=== PATIENT | male | born 1925 | race Caucasian/White ===

== ENCOUNTER → 2016-04-27 | Outpatient (CLI) | payer OTHER, MEDICARE ==
[2016-04-27 14:14] LABS: COLLECTION SITE R RAD
[2016-04-27 14:15] LABS: ABG PH 7.38 (7.35-7.45)
[2016-04-27 14:16] LABS: ABG BASE EXCESS -3 MMOL/L (-2-2); ABG HCO3 22 (22-26); ABG OXYGEN SATURATION 92 % (90-100); ABG TCO2 24 MMOL/L (23-27); ALLEN TEST Y; FIO2/O2 21
[2016-04-27 14:20] LABS: ABG PH 7.24 (7.35-7.45); COLLECTION SITE L RAD
[2016-04-27 14:21] LABS: ABG BASE EXCESS -11 MMOL/L (-2-2); ABG HCO3 16 (22-26); ABG OXYGEN SATURATION 94 % (90-100); ABG TCO2 17 MMOL/L (23-27); ALLEN TEST Y
[2016-04-27 14:22] LABS: FIO2/O2 21
== END ==
LOC: RT 13:03
PROVIDERS: ATTEND Internal Medicine
DX: Z77.012 Contact with and (suspected) exposure to uranium (principal)
CPT/HCPCS: 36600; 82803

== ENCOUNTER → 2016-07-26 | Outpatient (CLI) | payer OTHER, MEDICARE ==
--- NOTE | 2016-07-26 15:01 | DI ---
RIGHT LONG FINGER, 07/26/2016 2:34 PM: Clinical History: Pain in the right long finger. Previous Exam: None at this facility. 3 views are submitted. There is no acute soft tissue, osseous, or joint abnormality. On all views, th e distal phalanx of the long finger is flexed and injury to the extensor mechanism cannot be excluded . 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 Reading: There is no acute fracture or dislocation. Mild arthritic changes are present in the PIP and DIP join t.
--- NOTE | 2016-07-26 15:02 | DI ---
LEFT LONG FINGER, 07/26/2016 2:34 PM: Clinical History: Pain in the left long finger. Previous Exam: None at this facility. 3 views are submitted. There is no acute soft tissue, osseous, or joint abnormality. Degenerative art hritic changes are present in the PIP and DIP joints. On the PA projection of the hand, arthritic tyra nges are also noted in the triscaphe joint. 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
== END ==
LOC: ORTHO 14:46
PROVIDERS: ATTEND Orthopaedic Surgery
DX: M79.644 Pain in right finger(s) (principal); M79.645 Pain in left finger(s); M19.042 Primary osteoarthritis, left hand; M19.041 Primary osteoarthritis, right hand
CPT/HCPCS: 73140

== ENCOUNTER 2016-07-30 12:53 | Day surgery (SDC) | payer OTHER, MEDICARE ==
[~2016-07-30 12:53] MED LIST: LIDOCAINE W/ SODIUM BICARB 0.5 ML SYR ONE; Lactated Ringers 1,000 ML PRIMARY IV ONE; ceFAZolin Inj 2gm (Premix) 50 ML IV ONE
[2016-07-30 13:30] VITALS: RESP 18
[2016-07-30] MEDS ORDERED: LIDOCAINE 2% 20 MG/ML - 20 ML VIAL ONE (14:17)
[2016-07-30] MEDS ORDERED: MIDAZOLAM 5 MG/1 ML ONE (14:52)
[2016-07-30] MEDS ORDERED: NORMAL SALINE 10 ML SYRINGE FLUSH IVP PRN (15:38)
[2016-07-30] MEDS ORDERED: HYDROcodone-APAP 5 MG -325 MG TABLET PO PRN (15:38)
[2016-07-30] MEDS ORDERED: BISACODYL 10 MG SUPPOSITORY RECTAL PRN (15:38)
[2016-07-30] MEDS ORDERED: MAG HYDROX/AL HYDROX/SIMETH 30 ML SUSP PO PRN (15:38)
[2016-07-30] MEDS ORDERED: IBUPROFEN 400 MG TABLET PO PRN (15:38)
[2016-07-30] MEDS ORDERED: Ondansetron ODT Tab 8 MG TAB PO PRN (15:38)
[2016-07-30] MEDS ORDERED: CALCIUM CARBONATE 500 MG (TUMS) CHEWABLE TABLET PO PRN (15:38)
[2016-07-30] MEDS ORDERED: Prochlorperazine Tab 10 MG TAB PO PRN (15:38)
[2016-07-30] MEDS ORDERED: diphenhydrAMINE 25 MG CAPSULE PO PRN (15:38)
[2016-07-30] MEDS ORDERED: BISACODYL 5 MG TABLET PO PRN (15:38)
[2016-07-30] MEDS ORDERED: ONDANSETRON 4 MG/2 ML VIAL IVP PRN (15:38)
[2016-07-30] MEDS ORDERED: ACETAMINOPHEN 325 MG TABLET PO PRN (15:38)
[2016-07-30] MEDS ORDERED: Lactated Ringers 1,000 ML PRIMARY IV SCH (15:45)
[2016-07-30 16:33] VITALS: TEMP 97.8
== END 2016-07-30 16:40 | disposition home or self-care (01) ==
LOC: SDSC 12:53
PROVIDERS: ATTEND Orthopaedic Surgery
DX: M65.331 Trigger finger, right middle finger (principal); M65.332 Trigger finger, left middle finger
CPT/HCPCS: 26055; J0690; 01810; J2001; J2250; J7120

== ENCOUNTER → 2016-08-06 | Outpatient (CLI) | payer OTHER, MEDICARE | LOC: MMPC 10:00 | PROVIDERS: ATTEND Orthopaedic Surgery | DX: M65.331 Trigger finger, right middle finger (principal); M65.332 Trigger finger, left middle finger ==

== ENCOUNTER → 2016-09-03 | Outpatient (CLI) | payer OTHER, MEDICARE | LOC: MMPC 10:00 | PROVIDERS: ATTEND Orthopaedic Surgery | DX: M65.332 Trigger finger, left middle finger (principal); M65.331 Trigger finger, right middle finger ==

== ENCOUNTER 2016-09-07 09:00 | Day surgery (SDC) | payer OTHER, MEDICARE ==
[2016-09-07] MEDS ORDERED: BUPIVACAINE 0.25% W/ EPI - 10 ML VIAL ONE (09:45)
[2016-09-07] MEDS ORDERED: fentaNYL Inj 250 MCG/5 ML VIAL ONE (10:13)
[2016-09-07] MEDS ORDERED: MIDAZOLAM 5 MG/1 ML ONE (10:13)
[2016-09-07] MEDS ORDERED: LIDOCAINE HCL 1%/EPI 1:100,000 - 20 ML VIAL ONE (11:29)
[2016-09-07] MEDS ORDERED: BUPivacaine Inj 0.25% PF - 10ml vial ONE (11:29)
[2016-09-07] MEDS ORDERED: Lidocaine Inj 1% 20 ML ONE (11:31)
[2016-09-07] MEDS ORDERED: MORPHINE SULFATE 2 MG/1 ML IVP PRN (11:53)
[2016-09-07] MEDS ORDERED: CALCIUM CARBONATE 500 MG (TUMS) CHEWABLE TABLET PO PRN (11:53)
[2016-09-07] MEDS ORDERED: IBUPROFEN 400 MG TABLET PO PRN (11:53)
[2016-09-07] MEDS ORDERED: BISACODYL 5 MG TABLET PO PRN (11:53)
[2016-09-07] MEDS ORDERED: MAG HYDROX/AL HYDROX/SIMETH 30 ML SUSP PO PRN (11:53)
[2016-09-07] MEDS ORDERED: Ondansetron ODT Tab 8 MG TAB PO PRN (11:53)
[2016-09-07] MEDS ORDERED: Prochlorperazine Tab 10 MG TAB PO PRN (11:53)
[2016-09-07] MEDS ORDERED: NORMAL SALINE 10 ML SYRINGE FLUSH IVP PRN (11:53)
[2016-09-07] MEDS ORDERED: HYDROcodone-APAP 5 MG -325 MG TABLET PO PRN (11:53)
[2016-09-07] MEDS ORDERED: diphenhydrAMINE 25 MG CAPSULE PO PRN (11:53)
[2016-09-07] MEDS ORDERED: ACETAMINOPHEN 325 MG TABLET PO PRN (11:53)
[2016-09-07] MEDS ORDERED: BISACODYL 10 MG SUPPOSITORY RECTAL PRN (11:53)
[2016-09-07] MEDS ORDERED: ONDANSETRON 4 MG/2 ML VIAL IVP PRN (11:53)
[2016-09-07] MEDS ORDERED: Lactated Ringers 1,000 ML PRIMARY IV SCH (12:00)
[2016-09-07 12:07] VITALS: RESP 14; TEMP 97.9
== END 2016-09-07 12:38 | disposition home or self-care (01) ==
LOC: SDSC 09:00
PROVIDERS: ATTEND Orthopaedic Surgery
DX: M65.331 Trigger finger, right middle finger (principal); M65.332 Trigger finger, left middle finger
CPT/HCPCS: 26055 ×2; J0690; J2704; J3010; J2001; J2250; J7120

== ENCOUNTER → 2016-09-20 | Outpatient (CLI) | payer OTHER, MEDICARE | LOC: MMPC 11:11 | PROVIDERS: ATTEND Internal Medicine | DX: K91.1 Postgastric surgery syndromes (principal); I48.0 Paroxysmal atrial fibrillation | CPT/HCPCS: 99213; G0463 ==

== ENCOUNTER → 2016-09-24 | Outpatient (CLI) | payer OTHER, MEDICARE | LOC: MMPC 10:00 | PROVIDERS: ATTEND Orthopaedic Surgery | DX: M65.332 Trigger finger, left middle finger (principal) ==

== ENCOUNTER → 2016-11-23 | Outpatient (CLI) | payer OTHER, MEDICARE | LOC: MMPC 10:00 | PROVIDERS: ATTEND Neurological Surgery | DX: M54.2 Cervicalgia (principal); M47.812 Spondylosis without myelopathy or radiculopathy, cervical region | CPT/HCPCS: 64405; 99213; G0463 ==